=== PATIENT | male | born 1945 | race Caucasian/White ===

== ENCOUNTER 2020-04-26 07:16 | Day surgery (SDC) | payer OTHER, BC ==
[2020-04-24 11:41] VITALS: BMI 32.5
[2020-04-26] MEDS ORDERED: PROPOFOL 20 ML ONE ×2 (07:56)
[2020-04-26 08:58] VITALS: BP 109/75
[2020-04-26 09:18] VITALS: PULSE 84; TEMP 98
== END 2020-04-26 09:20 | disposition home or self-care (01) ==
LOC: FASU 07:16
PROVIDERS: ATTEND Internal Medicine Gastroenterology
PROC: 0DJD8ZZ Inspection of Lower Intestinal Tract, Via Natural or Artificial Opening Endoscopic (ICD-10-PCS; principal; 2020-04-26 08:29)
DX: Z86.010 Personal history of colon polyps (principal); K57.30 Diverticulosis of large intestine without perforation or abscess without bleeding